=== PATIENT | male | born 1955 | race Caucasian/White ===

== ENCOUNTER 2017-06-15 19:39 | Emergency (ER) | payer OTHER, BC ==
[~2017-06-15] VITALS: Ht 175.3 cm; Wt 92.0 kg
[2017-06-15 19:49] VITALS: TEMP 36.7; Ht 175.3 cm; Wt 92.0 kg
--- NOTE | 2017-06-15 20:08 | EMERGENCY ROOM VISIT NOTE ---
History Report prepared by Cliffibchani: Ely Contreras Under the Supervision of: Dr. Shmuel Rockwell M.D. First contact with patient: 19:55 Chief Complaint: REFERRED BY DOCTOR Stated Complaint: POSSIBLE PE History of Present Illness The patient is a 61 year old male who presents to the Emergency Room with complaints of a possible PE. He reports 1 week ago, he drove to [place] for vacation, spending 5 hours in the car. While on vacation, he began to experience pain in his left side, along his left flank and shoulder area. He never experienced any "stabbing chest pain" and was able to get up and move around throughout the day. Later that evening, as the patient went to lay down flat, he felt like he was unable to breathe and he experienced pain with inspiration. He also experienced the same left sided pain he had felt earlier in the day. The patient was able to sleep propped up, and the next morning went to a local urgent care clinic. He had a chest X-ray and blood work, and was told he had pneumonia and placed on Amoxicillin, which he is still taking. He was referred to a local ED in [place] for a Chest CT, but when the patient got to the ED, a full parking lot deterred him and he left without being seen. His pain resolved for the remainder of his trip, and he made an appointment to see his PCP, Dr. Mary Jane Gusman, when he got back to [place]. He saw Dr. Gusman earlier today and was referred here to [facility] for a Chest CT. The patient denies any history of PE's or DVT's. He denies any family history of blood clots. He denies any recent fevers or cough. 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 A total of 10 systems reviewed and were otherwise negative. Past Medical & Surgical Medical Problems: (1) Anxiety (2) GERD (gastroesophageal reflux disease) (3) Hypertension Family History Hypertension Social History Smoking Status: Never Smoker Alcohol Use: occasionally Drug Use: none Marital Status: Housing Status: lives with family Occupation Status: retired Current/Historical Medications Scheduled Losartan Potassium (Cozaar), 25 MG PO BID Omeprazole (Prilosec), 40 MG PO DAILY Propranolol (Inderal), 40 MG PO BID Rivaroxaban (Xarelto), 1 TAB PO BID Scheduled PRN Alprazolam (Xanax), 0.5 MG PO Q8 PRN for Anxiety Allergies Coded Allergies: No Known Allergies (Unverified , 06/15/17) Physical Exam Vital Signs Date Time Temp Pulse Resp B/P (MAP) Pulse Ox O2 Delivery O2 Flow Rate FiO2 06/15/17 20:44 85 06/15/17 20:35 98 Room Air 06/15/17 19:49 36.7 79 18 142/86 96 Room Air Physical Exam GENERAL: Patient is in no acute distress. HEENT: No acute trauma, normocephalic atraumatic, mucous membranes moist, no nasal congestion, no scleral icterus. NECK: No stridor, no adenopathy, no meningismus, trachea is midline. LUNGS: Clear to auscultation bilaterally, no wheeze, no rhonchi, breath sounds equal. HEART: Without murmurs gallops or rubs, regular rate and rhythm. ABDOMEN: Soft, nontender, bowel sounds positive, no hernias, no peritonitis. EXTREMITIES: No cyanosis or edema, full range of motion of all the joints without pain or difficulty, no signs for acute trauma. NEUROLOGIC: Oriented x 3, no acute motor or sensory deficits, no focal weakness. SKIN: No rash, no jaundice, no diaphoresis. Medical Decision & Procedures ER Provider Diagnostic Interpretation: Radiology results as stated below per my review and radiologist interpretation: CHEST CTA for PULMONARY ARTERIES CT DOSE: 434.65 mGy.cm HISTORY: BILATERAL PNEUMONIA, atypical CHEST PAIN TECHNIQUE: Multiaxial CT images of the chest were performed following the intravenous administration of contrast to evaluate the pulmonary arteries. Maximal intensity projection images were also obtained. A dose lowering technique was utilized adhering to the principles of ALARA. COMPARISON STUDY: None. FINDINGS: Chronic anterior bowing of the sternum. Normal caliber thoracic aorta with no evidence for dissection. Small peripheral filling defect seen within a left lower lobe subsegmental branch on image 141. The remaining pulmonary arteries are patent. Trace left pleural effusion. No mediastinal or hilar lymphadenopathy. Limited views of the upper abdomen demonstrate a normal liver and spleen. The residual gland is unremarkable. Mild nodular thickening within the left adrenal gland. No pneumothorax. The central airways are patent. Small patchy areas of consolidation within the base of the bilateral lower lobes posteriorly. There is also small focal peripheral area of consolidation within the right middle lobe which measures 2.7 cm. There is an adjacent 5 mm nodule within the right lower lobe on image 122. IMPRESSION: 1. There is a single small peripheral filling defect seen within a left lower lobe subsegmental pulmonary artery. This is concerning for a nonocclusive pulmonary embolus. The remaining pulmonary arteries are patent. 2. Small bibasilar patchy areas consolidations. These are nonspecific and could be due to atelectasis or pneumonia. 3. A 5 mm indeterminate pulmonary nodule within the right middle lobe. Please refer to the chart below for recommended follow-up. 4. Trace left pleural effusion. Please refer to below summary of Fleischner criteria recommendations for follow-up of incidental CT nodules (Julio Callahan, Guidelines for management of small pulmonary nodules detected on CT scans: A statement from the Fleischner Society, Radiology 237: [phone].) SOLID NODULES Solitary nodule size: <6 mm * Low risk patients: no follow-up needed * high risk patients: optional CT at 12 months Solitary nodule size: 6-8 mm * Low risk patients: follow-up at 6-12 months, then consider further follow-up at 18-24 months * high risk patients: initial follow-up CT at 6-12 months and then at 18-24 months if no change Solitary nodule size: >8 mm * either low or high risk patients - consider follow-up CT at 3 months, and/or CT-PET, and/or biopsy Multiple nodules size: <6 mm * Low risk patients: no routine follow-up * high risk patients: optional CT at 12 months Multiple nodules size: 6-8 mm * Low risk patients: follow-up at 3-6 months, then consider further follow-up at 18-24 months * high risk patients: follow-up at 3-6 months, then at 18-24 months if no change Multiple nodules size: >8 mm * Low risk patients: follow-up at 3-6 months, then consider further follow-up at 18-24 months * high risk patients: follow-up at 3-6 months, then at 18-24 months if no change Note: newly detected indeterminate nodule in persons 35 years of age or older. * Low risk patients: minimal or absent history of smoking and/or other known risk factors * high risk patients: history of smoking or of other known risk factors (e.g. first degree relative with lung cancer, or exposure to asbestos, radon, uranium) * if a nodule up to 8 mm is partly solid or is ground glass further follow-up is required after 24 months to exclude possible slow growing adenocarcinoma (ESTRELLITA) SUBSOLID NODULES Solitary pure ground-glass nodule * nodule size <6 mm - no CT follow-up required * nodule size >=6 mm - follow-up CT at 6-12 months, then every 2 years until 5 years Solitary part-solid nodule * nodule size <6 mm - no CT follow-up required * nodule size >=6 mm - follow-up CT at 3-6 months. If unchanged, and solid component remains <6 mm, then annual follow-up for 5 years Multiple subsolid nodules * nodule size <6 mm - follow-up CT at 3-6 months, consider further follow-up at 2 and 4 years if stable * nodule size >=6 mm - follow-up CT at 3-6 months, subsequent management based on the most suspicious nodule(s) Electronically signed by: Eleazar Neves M.D. 06/15/2017 7:22 PM Radiology results as stated below per my review and radiologist interpretation: BILATERAL LOWER EXTREMITY VENOUS DOPPLER HISTORY: Pulmonary embolus on ct, poss dvt COMPARISON STUDY: None. FINDINGS: There is normal compressibility, flow, and augmentation within the bilateral lower extremity deep venous systems. IMPRESSION: No DVT within the right or left lower extremity. Electronically signed by: Eleazar Neves M.D. 06/15/2017 9:27 PM Laboratory Results 06/15/17 20:29 Red Blood Count 5.76, Mean Corpuscular Volume 92.7, Mean Corpuscular Hemoglobin 31.6, Mean Corpuscular Hemoglobin Concent 34.1, Mean Platelet Volume 10.1, Neutrophils (%) (Auto) 58.4, Lymphocytes (%) (Auto) 27.5, Monocytes (%) (Auto) 10.0, Eosinophils (%) (Auto) 2.9, Basophils (%) (Auto) 0.4, Neutrophils # (Auto ) 4.20, Lymphocytes # (Auto) 1.98, Monocytes # (Auto) 0.72, Eosinophils # (Auto ) 0.21, Basophils # (Auto) 0.03 06/15/17 20:29 Test 06/15/17 20:29 White Blood Count 7.20 K/uL (4.8-10.8) Red Blood Count 5.76 M/uL (4.7-6.1) Hemoglobin 18.2 g/dL (14.0-18.0) Hematocrit 53.4 % (42-52) Mean Corpuscular Volume 92.7 fL (80-100) Mean Corpuscular Hemoglobin 31.6 pg (25-34) Mean Corpuscular Hemoglobin Concent 34.1 g/dl (32-36) Platelet Count 238 K/uL (130-400) Mean Platelet Volume 10.1 fL (7.4-10.4) Neutrophils (%) (Auto) 58.4 % Lymphocytes (%) (Auto) 27.5 % Monocytes (%) (Auto) 10.0 % Eosinophils (%) (Auto) 2.9 % Basophils (%) (Auto) 0.4 % Neutrophils # (Auto) 4.20 K/uL (1.4-6.5) Lymphocytes # (Auto) 1.98 K/uL (1.2-3.4) Monocytes # (Auto) 0.72 K/uL (0.11-0.59) Eosinophils # (Auto) 0.21 K/uL (0-0.5) Basophils # (Auto) 0.03 K/uL (0-0.2) RDW Standard Deviation 44.7 fL (36.4-46.3) RDW Coefficient of Variation 13.2 % (11.5-14.5) Immature Granulocyte % (Auto) 0.8 % Immature Granulocyte # (Auto) 0.06 K/uL (0.00-0.02) Prothrombin Time 11.3 SECONDS (9.0-12.0) Prothromb Time International Ratio 1.1 (0.9-1.1) Activated Partial Thromboplast Time 27.8 SECONDS (21.0-31.0) Partial Thromboplastin Ratio 1.1 Anion Gap 5.0 mmol/L (3-11) Est Creatinine Clear Calc Drug Dose 66.0 ml/min Estimated GFR () 67.8 Estimated GFR (Non- 58.5 BUN/Creatinine Ratio 14.9 (10-20) Calcium Level 9.3 mg/dl (8.5-10.1) Total Bilirubin 0.6 mg/dl (0.2-1) Aspartate Amino Transf (AST/SGOT) 33 U/L (15-37) Alanine Aminotransferase (ALT/SGPT) 49 U/L (12-78) Alkaline Phosphatase 75 U/L (45-117) Troponin I < 0.015 ng/ml (0-0.045) Total Protein 8.0 gm/dl (6.4-8.2) Albumin 3.4 gm/dl (3.4-5.0) Globulin 4.6 gm/dl (2.5-4.0) Albumin/Globulin Ratio 0.7 (0.9-2) Laboratory results reviewed by me. ECG Indication: other (Pulmonary Embolus) Rate (beats per minute): 93 Rhythm: sinus rhythm Findings: PVC, no acute ischemic change, prolonged QT (Somewhat prolonged QT) ED Course 1955: The patient was evaluated in room B11. A complete history and physical exam was performed. 2014: I discussed the patients case with Dr. Hernandez, [facility] Hospitalist. He recommends the patient be evaluated for any more clots in his legs, otherwise if he is doing well enough and there is no clot found in his legs, he can be discharged home on Xarelto. 2141: I discussed the patients case with Dr. Hernandez, [facility] Hospitalist. The patient will be started on a 21 day course of Xarelto and discharged home. 2142: Xarelto 15 mg PO. 2154: I reevaluated the patient. He is resting comfortably. I discussed his results and discharge instructions and he verbalized complete understanding and agreement. Medical Decision The differential diagnoses considered include PE, pneumonia, artifact, DVT, hypercoagulable state, electrolyte imbalance and anemia. There is no leukocytosis or concerning anemia. No significant electrolyte abnormality, kidney failure or hepatitis. There is no coagulopathy. EKG shows a sinus rhythm, no acute ischemia. Cardiac enzyme testing times one does not show any evidence for cardiac ischemia. Hypercoagulable workup is pending. Bilateral lower extremity ultrasound does not show evidence for DVT. The CT from earlier today does show a small left-sided pulmonary embolus. The patient is resting comfortably. He is not tachycardic. He has no pain on inspiration. He is not hypoxic. His EKG and troponin are unremarkable as noted above. I discussed the case with the on-call hospitalist. Given the circumstances, the patient was felt stable for discharge on oral anticoagulation. He was given a dose of oral Xarelto before discharge and a prescription was sent to his pharmacy. He will need to see his doctor in the next day or so for a recheck and to have further anticoagulation prescriptions written. The patient was encouraged to return here for pleuritic chest pain, shortness breath or worsening symptoms. Medication Reconcilliation Current Medication List: was personally reviewed by me Blood Pressure Screening Patient's blood pressure: Elevated blood pressure Blood pressure disposition: Elevated BP felt to be situational Consults Time Called: 2009 Consulting Physician: Dr. Hernandez, [facility] Hospitalist Returned Call: 2014 I discussed the patients case with Dr. Hernandez, [facility] Hospitalist. He recommends the patient be evaluated for any more clots in his legs, otherwise if he is doing well enough and there is no clot found in his legs, he can be discharged home on Xarelto. Impression Primary Impression: Pulmonary embolus Scribe Attestation The scribe's documentation has been prepared under my direction and personally reviewed by me in its entirety. I confirm that the note above accurately reflects all work, treatment, procedures, and medical decision making performed by me. Departure Information Dispostion Home / Self-Care Prescriptions Rivaroxaban (Xarelto) 15 Mg Tab 1 TAB PO BID for 21 Days, #42 TAB Prov: Shmuel Rockwell M.D. 06/15/17 Referrals Mary Jane Gusman M.D. (PCP) Patient Instructions My [facility] Additional Instructions Xarelto 15 mg 2x per day for 21 days---the later dosing can be ordered by your family doctor's office. You will need a longer course. return for worsening symptoms, chest pain or if feel short of breath no aspirin, ibuprofen, aleve, motrin or advil while on the Xarelto must see your [facility] md tomorrow or the next day
[2017-06-15 20:35] VITALS: O2SAT 98
[2017-06-15 20:53] LABS: BASO % 0.4 %; BASO ABS # 0.03 K/uL (0-0.2); COMPLETE YES; EOS % 2.9 %; HEMATOCRIT 53.4 % (42-52); IG% 0.8 %; LYMPH % 27.5 %; LYMPH ABS # 1.98 K/uL (1.2-3.4); MEAN CELL VOLUME 92.7 fL (80-100); MEAN CORPUSCULAR HEMOGLOBIN 31.6 pg (25-34); MEAN CORPUSCULAR HGB CONC 34.1 g/dl (32-36); MEAN PLATELET VOLUME 10.1 fL (7.4-10.4); NEUT % 58.4 %; PLATELET COUNT 238 K/uL (130-400); RED BLOOD COUNT 5.76 M/uL (4.7-6.1)
[2017-06-15 21:01] LABS: INR 1.1 (0.9-1.1); PARTIAL THROMBOPLASTIN RATIO 1.1; PROTHROMBIN TIME (PATIENT) 11.3 SECONDS (9.0-12.0)
[2017-06-15 21:08] LABS: ALT/SGPT 49 U/L (12-78); BLOOD UREA NITROGEN 19 mg/dl (7-18); BUN/CREATININE RATIO 14.9 (10-20); CALCIUM 9.3 mg/dl (8.5-10.1); CARBON DIOXIDE 27 mmol/L (21-32); CHLORIDE 104 mmol/L (98-107); GLUCOSE 90 mg/dl (70-99); POTASSIUM 4.1 mmol/L (3.5-5.1); SODIUM 136 mmol/L (136-145)
[2017-06-15] MEDS ORDERED: LOSA1TAB PO (21:11)
[2017-06-15 21:12] LABS: ALB/GLOB RATIO 0.7 (0.9-2); ALKALINE PHOSPHATASE 75 U/L (45-117); AST/SGOT 33 U/L (15-37)
[2017-06-15] MEDS ORDERED: PROP20TA67 PO (21:12)
[2017-06-15] MEDS ORDERED: OMEP40CA41 PO (21:14)
[2017-06-15] MEDS ORDERED: ALPR-411 PO (21:14)
--- NOTE | 2017-06-15 21:29 | DIAGNOSTIC IMAGING REPORT ---
BILATERAL LOWER EXTREMITY VENOUS DOPPLER HISTORY: Pulmonary embolus on ct, poss dvt COMPARISON STUDY: None. FINDINGS: There is normal compressibility, flow, and augmentation within the bilateral lower extremity deep venous systems. IMPRESSION: No DVT within the right or left lower extremity. Electronically signed by: Eleazar Nvees M.D. 06/15/2017 9:27 PM Dictated Date/Time: 06/15/2017 9:27 PM
[2017-06-15] MEDS ORDERED: RIVAROXABAN TAB 15 MG TAB PO STA (21:43)
[2017-06-15] MEDS ORDERED: XRL15 PO (21:49)
[2017-06-15 22:14] VITALS: BP 136/87; PULSE 76; O2SAT 96
[2017-06-19 01:37] LABS: ANTITHROMBINIII ACTIVITY** 77 % activity (80-120); B2 GLYCOPROTEIN IGA <9 SAU (<=20); B2 GLYCOPROTEIN IGG <9 SGU (<=20); B2 GLYCOPROTEIN IGM <9 SMU (<=20); LUPUS ANTICOAGULANT** TC36573X Negative (Negative); PROTEIN C ACTIVITY** TC 1777X 102 % (70-180); PROTEIN S ACT(FUNCT)**1779X 90 % (70-150)
== END 2017-06-15 22:17 | disposition home or self-care (01) ==
LOC: C.EDB 19:40
DX: I26.99 Other pulmonary embolism without acute cor pulmonale (principal); F41.9 Anxiety disorder, unspecified; K21.9 Gastro-esophageal reflux disease without esophagitis; I10 Essential (primary) hypertension; Z82.49 Family history of ischemic heart disease and other diseases of the circulatory system; Z79.899 Other long term (current) drug therapy; J18.9 Pneumonia, unspecified organism; R07.9 Chest pain, unspecified; R91.8 Other nonspecific abnormal finding of lung field; J90 Pleural effusion, not elsewhere classified

== ENCOUNTER → 2017-06-15 | Outpatient (CLI) | payer OTHER, BC ==
[~2017-06-15] MED LIST: ALPR-411 PO; LOSA1TAB PO; OMEP40CA41 PO; OPTIRAY 320 IV PRN; PROP20TA67 PO; XRL15 PO
--- NOTE | 2017-06-15 19:23 | DIAGNOSTIC IMAGING REPORT ---
CHEST CTA for PULMONARY ARTERIES CT DOSE: 434.65 mGy.cm HISTORY: BILATERAL PNEUMONIA, atypical CHEST PAIN TECHNIQUE: Multiaxial CT images of the chest were performed following the intravenous administration of contrast to evaluate the pulmonary arteries. Maximal intensity projection images were also obtained. A dose lowering technique was utilized adhering to the principles of ALARA. COMPARISON STUDY: None. FINDINGS: Chronic anterior bowing of the sternum. Normal caliber thoracic aorta with no evidence for dissection. Small peripheral filling defect seen within a left lower lobe subsegmental branch on image 141. The remaining pulmonary arteries are patent. Trace left pleural effusion. No mediastinal or hilar lymphadenopathy. Limited views of the upper abdomen demonstrate a normal liver and spleen. The residual gland is unremarkable. Mild nodular thickening within the left adrenal gland. No pneumothorax. The central airways are patent. Small patchy areas of consolidation within the base of the bilateral lower lobes posteriorly. There is also small focal peripheral area of consolidation within the right middle lobe which measures 2.7 cm. There is an adjacent 5 mm nodule within the right lower lobe on image 122. IMPRESSION: 1. There is a single small peripheral filling defect seen within a left lower lobe subsegmental pulmonary artery. This is concerning for a nonocclusive pulmonary embolus. The remaining pulmonary arteries are patent. 2. Small bibasilar patchy areas consolidations. These are nonspecific and could be due to atelectasis or pneumonia. 3. A 5 mm indeterminate pulmonary nodule within the right middle lobe. Please refer to the chart below for recommended follow-up. 4. Trace left pleural effusion. Please refer to below summary of Fleischner criteria recommendations for follow-up of incidental CT nodules (Julio Callahan, Guidelines for management of small pulmonary nodules detected on CT scans: A statement from the Fleischner Society, Radiology 237: [phone].) SOLID NODULES Solitary nodule size: <6 mm * Low risk patients: no follow-up needed * high risk patients: optional CT at 12 months Solitary nodule size: 6-8 mm * Low risk patients: follow-up at 6-12 months, then consider further follow-up at 18-24 months * high risk patients: initial follow-up CT at 6-12 months and then at 18-24 months if no change Solitary nodule size: >8 mm * either low or high risk patients - consider follow-up CT at 3 months, and/or CT-PET, and/or biopsy Multiple nodules size: <6 mm * Low risk patients: no routine follow-up * high risk patients: optional CT at 12 months Multiple nodules size: 6-8 mm * Low risk patients: follow-up at 3-6 months, then consider further follow-up at 18-24 months * high risk patients: follow-up at 3-6 months, then at 18-24 months if no change Multiple nodules size: >8 mm * Low risk patients: follow-up at 3-6 months, then consider further follow-up at 18-24 months * high risk patients: follow-up at 3-6 months, then at 18-24 months if no change Note: newly detected indeterminate nodule in persons 35 years of age or older. * Low risk patients: minimal or absent history of smoking and/or other known risk factors * high risk patients: history of smoking or of other known risk factors (e.g. first degree relative with lung cancer, or exposure to asbestos, radon, uranium) * if a nodule up to 8 mm is partly solid or is ground glass further follow-up is required after 24 months to exclude possible slow growing adenocarcinoma (ESTRELLITA) SUBSOLID NODULES Solitary pure ground-glass nodule * nodule size <6 mm - no CT follow-up required * nodule size >=6 mm - follow-up CT at 6-12 months, then every 2 years until 5 years Solitary part-solid nodule * nodule size <6 mm - no CT follow-up required * nodule size >=6 mm - follow-up CT at 3-6 months. If unchanged, and solid component remains <6 mm, then annual follow-up for 5 years Multiple subsolid nodules * nodule size <6 mm - follow-up CT at 3-6 months, consider further follow-up at 2 and 4 years if stable * nodule size >=6 mm - follow-up CT at 3-6 months, subsequent management based on the most suspicious nodule(s) Electronically signed by: Eleazar Neves M.D. 06/15/2017 7:22 PM Dictated Date/Time: 06/15/2017 7:07 PM
== END | disposition home or self-care (01) ==
LOC: C.CTS 18:46
PROVIDERS: ATTEND Family Medicine
DX: J18.9 Pneumonia, unspecified organism (principal); R07.9 Chest pain, unspecified; R91.8 Other nonspecific abnormal finding of lung field; J90 Pleural effusion, not elsewhere classified

== ENCOUNTER → 2017-09-01 | Outpatient (CLI) | payer OTHER, BC ==
[~2017-09-01] MED LIST changes: -OPTIRAY 320 IV PRN
--- NOTE | 2017-09-01 14:43 | DIAGNOSTIC IMAGING REPORT ---
CHEST 2 VIEWS ROUTINE HISTORY: 61 years-old Male PNEUMONIA, PULMONARY EMBOLISM, PUMLMONARY NODULE follow-up study in a patient with bibasilar consolidation seen on comparison study COMPARISON: CTA of the chest 06/15/2017 TECHNIQUE: PA and lateral views of the chest FINDINGS: Cardiomediastinal and hilar silhouettes are within normal limits. Linear subsegmental bibasilar opacities are noted which appear similar from comparison suggesting atelectasis. There is no pneumothorax, pleural effusion or lobar airspace consolidation. Bones of the chest are grossly intact. There are degenerative changes of the spine. Pectus carinatum deformity. IMPRESSION: Linear subsegmental bibasilar opacities are again seen suggesting atelectasis. No lobar airspace consolidation. The above report was generated using voice recognition software. It may contain grammatical, syntax or spelling errors. Electronically signed by: Ramiro Loomis M.D. 09/01/2017 2:42 PM Dictated Date/Time: 09/01/2017 2:40 PM
== END | disposition home or self-care (01) ==
LOC: C.RAD1850 14:17
PROVIDERS: ATTEND Internal Medicine Pulmonary Disease
DX: J18.9 Pneumonia, unspecified organism (principal); I26.99 Other pulmonary embolism without acute cor pulmonale; R91.1 Solitary pulmonary nodule

== ENCOUNTER → 2017-09-10 | Outpatient (CLI) | payer OTHER, BC | END | disposition home or self-care (01) | LOC: C.LABPBG 10:02 | PROVIDERS: ATTEND Internal Medicine Hematology & Oncology | DX: I26.99 Other pulmonary embolism without acute cor pulmonale (principal) ==

== ENCOUNTER → 2017-12-07 | Outpatient (CLI) | payer BC, OTHER ==
[2017-12-11 04:19] LABS: ANTICARDIOLIPID AB IGA 12 APL (< = 11)
== END | disposition home or self-care (01) ==
LOC: C.LABPBG 10:40
PROVIDERS: ATTEND Internal Medicine Hematology & Oncology
DX: I26.99 Other pulmonary embolism without acute cor pulmonale (principal)

== ENCOUNTER → 2018-01-25 | Outpatient (CLI) | payer OTHER, MEDICARE | END | disposition home or self-care (01) | LOC: C.LABPBG 09:32 | PROVIDERS: ATTEND Urology | DX: N40.1 Benign prostatic hyperplasia with lower urinary tract symptoms (principal) ==